=== PATIENT | male | born 1995 | race Caucasian/White ===

== ENCOUNTER 2017-02-17 22:33 | Emergency (ER) | payer OTHER ==
[~2017-02-17] VITALS: Wt 88.5 kg
[~2017-02-17 22:33] MED LIST: 'PARAFON FORTE500 M1 PO; ADDERALL10 MG PO; ADDERALL20 MG PO; ADDERALL30 MG PO; ALBUTEROL0.09 MG/A2 INH; ALLEGRA-D 12 HO1 TER PO; ANAPROX DS550 MG PO; BIAXIN500 MG PO; CLARITIN10 MG PO; CYCLOBENZAPRINE10 MG PO; FLONASE 0.05% 121 EA NAS; FLONASE ALLERG9.9 ML NAS; IBU800 MG PO; KEFLEX500 M1 PO; KEFLEX500 MG PO; KETOROLAC10 MG PO; LIDEX0.05% T; MEDROL DOSEPAK4 MG PO; MOTRIN100 MG/5 M PO; MOTRIN400 MG PO; MOTRIN600 MG PO; MOTRIN800 MG PO; Miralax Powder255 GM PO; NAPROSYN500 MG PO; OMNICEF300 MG PO; PEPCID20 MG PO; PHENERGAN25 M3 PO; PREDNICOT10 MG PO; PREDNICOT20 MG PO; PREDNISONE10 MG PO; PREDNISONE50 MG PO; PRILOSEC20 MG PO; RISPERDAL; RISPERDAL0.5 MG PO; RISPERDAL1 MG PO; ROBITUSSIN AC 110 ML PO; ROBITUSSIN DM 105 ML PO; TESSALON PERLE200 MG PO; TRAMADOL HCL50 MG PO; VYVANSE50 MG PO; ZITHROMAX Z PA250 MG PO; ZITHROMAX250 MG PO; ZOFRAN ODT4 MG SL; [UNRECOGNIZED DRUG - OTHER]
[2017-02-17] MEDS ORDERED: ANAPROX DS550 MG PO (23:45)
== END 2017-02-17 23:46 | disposition home or self-care (01) ==
LOC: ED 22:33
DX: M77.9 Enthesopathy, unspecified (principal); F91.9 Conduct disorder, unspecified; F17.200 Nicotine dependence, unspecified, uncomplicated; Z79.899 Other long term (current) drug therapy; Z91.038 Other insect allergy status

== ENCOUNTER 2017-03-02 18:14 | Emergency (ER) | payer OTHER ==
[~2017-03-02] VITALS: Ht 187.9 cm; Wt 98.4 kg
[2017-03-02 18:18] VITALS: BP 128/79
[2017-03-02] MEDS ORDERED: NAPROSYN500 MG PO (18:21)
== END 2017-03-02 19:11 | disposition home or self-care (01) ==
LOC: ED 18:14
DX: S63.501A Unspecified sprain of right wrist, initial encounter (principal); S60.221A Contusion of right hand, initial encounter; R03.0 Elevated blood-pressure reading, without diagnosis of hypertension; F17.200 Nicotine dependence, unspecified, uncomplicated; Z91.030 Bee allergy status; W50.0XXA Accidental hit or strike by another person, initial encounter; Y93.89 Activity, other specified; Y92.9 Unspecified place or not applicable; Y99.9 Unspecified external cause status

== ENCOUNTER 2017-04-04 18:08 | Emergency (ER) | payer OTHER ==
[~2017-04-04] VITALS: Ht 190.5 cm; Wt 98.4 kg
[2017-04-04 18:16] VITALS: BP 146/88
[2017-04-04 19:21] LABS: BASO % 0.6 % (0.0-1.0); EOS # 0.2 10*3/uL (0.0-0.4); EOS % 3.4 % (1.0-4.0); HEMATOCRIT 46.5 % (42.0-52.0); HEMOGLOBIN 15.8 g/dl (14.0-18.0); LYMPH # 1.8 10*3/uL (1.3-4.4); LYMPH % 26.1 % (27.0-41.0); MEAN CELL VOLUME 88.1 fl (80.0-94.0); MEAN CORPUSCULAR HGB 29.9 pg (27.0-31.0); MEAN PLATELET VOLUME 9.8 fl (9.6-12.3); MONO # 0.6 10*3/uL (0.1-1.0); NEUT # 4.2 10*3/uL (2.3-7.9); NEUT % 61.8 % (47.0-73.0); PLATELET COUNT AUTOMATED 250 10*3/uL (130-400); RED BLOOD COUNT 5.28 10*6/uL (4.50-5.90); RED CELL DISTRI WIDTH 12.7 % (0-14.5); WHITE BLOOD COUNT 6.9 10*3/uL (4.8-10.8)
[2017-04-04 19:33] LABS: BUN 9 mg/dl (7-24); CARBON DIOXIDE 25 mmol/L (21-32); CHLORIDE 107 mmol/L (98-107); EST GLOM FILT AFRICAN AMERICAN > 60 ml/min; GLUCOSE 109 mg/dL (65-99); POTASSIUM 3.3 mmol/L (3.5-5.1); SODIUM 141 mmol/L (136-145)
[2017-04-04 20:05] LABS: BILIRUBIN NEGATIVE (NEGATIVE); BLOOD NEGATIVE (NEGATIVE); CLARITY CLEAR (CLEAR); COLOR YELLOW (YELLOW); GLUCOSE NEGATIVE (NEGATIVE); KETONE NEGATIVE (NEGATIVE); LEUKO ESTERASE NEGATIVE (NEGATIVE); NITRITE NEGATIVE (NEGATIVE); PH 7.5 (5.0-9.0); PROTEIN NEGATIVE (NEGATIVE); UROBILINOGEN 0.2 E.U./dl (0.2-1.0)
[2017-04-04] MEDS ORDERED: Zofran4 MG PO (20:16)
[2017-04-04 20:26] LABS: BACTERIA TRACE; URINE REFLEX COMMENT NO (NO); WBC 0-2 wbc/hpf (0-5)
== END 2017-04-04 20:35 | disposition home or self-care (01) ==
LOC: ED 18:08
PROVIDERS: Emergency Medicine
DX: R11.2 Nausea with vomiting, unspecified (principal); R19.7 Diarrhea, unspecified; E87.6 Hypokalemia; F91.9 Conduct disorder, unspecified; F17.200 Nicotine dependence, unspecified, uncomplicated; Z91.030 Bee allergy status

== ENCOUNTER 2017-04-28 18:50 | Emergency (ER) | payer OTHER ==
[~2017-04-28] VITALS: Ht 187.9 cm; Wt 90.7 kg
[~2017-04-28 18:50] MED LIST changes: +Zofran4 MG PO
[2017-04-28 18:55] VITALS: BP 145/77
[2017-04-28] MEDS ORDERED: AMOXICILLIN500 M2 PO (19:15)
== END 2017-04-28 19:16 | disposition home or self-care (01) ==
LOC: ED 18:50
DX: J02.9 Acute pharyngitis, unspecified (principal); F17.200 Nicotine dependence, unspecified, uncomplicated; Z91.030 Bee allergy status

== ENCOUNTER 2017-04-30 15:59 | Emergency (ER) | payer OTHER ==
[~2017-04-30] VITALS: Ht 187.9 cm; Wt 90.7 kg
[~2017-04-30 15:59] MED LIST changes: +AMOXICILLIN500 M2 PO
[2017-04-30 16:20] VITALS: BP 143/85
[2017-04-30 17:10] LABS: HEMATOCRIT 44.5 % (42.0-52.0); HEMOGLOBIN 15.2 g/dl (14.0-18.0); MEAN CELL VOLUME 87.3 fl (80.0-94.0); MEAN CORPUSCULAR HGB 29.8 pg (27.0-31.0); MEAN CORPUSCULAR HGB CONC 34.2 g/dl (33.0-37.0); MEAN PLATELET VOLUME 9.4 fl (9.6-12.3); PLATELET COUNT AUTOMATED 217 10*3/uL (130-400); RED CELL DISTRI WIDTH 12.7 % (0-14.5)
[2017-04-30 17:25] LABS: ALBUMIN 4.1 gm/dl (3.1-4.5); ALKALINE PHOSPHATASE 98 U/L (45-117); BILIRUBIN, TOTAL 0.4 mg/dl (0.2-1.0); BUN 13 mg/dl (7-24); CARBON DIOXIDE 30 mmol/L (21-32); CHLORIDE 106 mmol/L (98-107); EST GLOM FILT AFRICAN AMERICAN > 60 ml/min; GLUCOSE 86 mg/dL (65-99); POTASSIUM 3.9 mmol/L (3.5-5.1); SGOT/AST 29 IU/L (3-35); SGPT/ALT 49 U/L (12-78); SODIUM 141 mmol/L (136-145); TOTAL PROTEIN 7.3 gm/dL (6.4-8.2)
[2017-04-30 17:30] LABS: ATYPICAL LYMPHS 2 % (0-0); BASOPHIL # 0.1 10*3/uL (0-0.1); BASOPHILS 2 % (0-1); EOSINOPHIL # 0.2 10*3/uL (0-0.4); EOSINOPHILS 3 % (1-4); LYMPHOCYTE # 2.2 10*3/uL (1.3-4.4); MONOCYTE # 0.8 10*3/uL (0.1-1.0); NEUTROPHIL # 3.6 10*3/uL (2.3-7.9); NEUTROPHILS 51 % (47-73); PLATELET SUFFICIENCY NORMAL (NORMAL); TOTAL CELLS COUNTED 100 #CELLS
[2017-04-30] MEDS ORDERED: PREDNISONE10 MG PO (18:02)
[2017-04-30] MEDS ORDERED: DOXYCYCLINE100 M3 PO (18:02)
== END 2017-04-30 18:14 | disposition home or self-care (01) ==
LOC: ED 15:59
PROVIDERS: Registered Nurse
DX: J03.90 Acute tonsillitis, unspecified (principal); F17.200 Nicotine dependence, unspecified, uncomplicated; Z91.030 Bee allergy status

== ENCOUNTER 2017-07-15 22:18 | Emergency (ER) | payer OTHER ==
[~2017-07-15] VITALS: Ht 175.2 cm; Wt 93.0 kg
[~2017-07-15 22:18] MED LIST changes: +DOXYCYCLINE100 M3 PO
[2017-07-15 22:43] VITALS: BP 131/70
[2017-07-15] MEDS ORDERED: AMOXICILLIN500 M2 PO (23:25)
== END 2017-07-16 00:47 | disposition home or self-care (01) ==
LOC: ED 22:18
DX: K08.89 Other specified disorders of teeth and supporting structures (principal); Z91.030 Bee allergy status; F17.200 Nicotine dependence, unspecified, uncomplicated

== ENCOUNTER 2017-08-27 03:50 | Emergency (ER) | payer SELFPAY ==
[~2017-08-27] VITALS: Ht 187.9 cm; Wt 102.1 kg
[2017-08-27 04:31] LABS: BASO % 0.4 % (0.0-1.0); EOS # 0.3 10*3/uL (0.0-0.4); EOS % 2.7 % (1.0-4.0); HEMATOCRIT 44.6 % (42.0-52.0); HEMOGLOBIN 15.6 g/dl (14.0-18.0); LYMPH # 2.5 10*3/uL (1.3-4.4); LYMPH % 27.9 % (27.0-41.0); MEAN CORPUSCULAR HGB 29.7 pg (27.0-31.0); MEAN PLATELET VOLUME 9.1 fl (9.6-12.3); MONO # 0.7 10*3/uL (0.1-1.0); MONO % 7.8 % (3.0-9.0); NEUT # 5.6 10*3/uL (2.3-7.9); PLATELET COUNT AUTOMATED 268 10*3/uL (130-400); RED BLOOD COUNT 5.25 10*6/uL (4.50-5.90); RED CELL DISTRI WIDTH 12.5 % (0-14.5); WHITE BLOOD COUNT 9.1 10*3/uL (4.8-10.8)
[2017-08-27 04:44] LABS: BUN 14 mg/dl (7-24); CHLORIDE 104 mmol/L (98-107); CREATININE 1.17 mg/dL (0.70-1.30); POTASSIUM 3.2 mmol/L (3.5-5.1); SODIUM 141 mmol/L (136-145)
[2017-08-27 04:51] VITALS: BP 118/68
[2017-08-27] MEDS ORDERED: PROAIR HFA8.5 GM INH (05:26)
[2017-08-27] MEDS ORDERED: AMOXICILLIN875 MG PO (05:26)
== END 2017-08-27 05:42 | disposition home or self-care (01) ==
LOC: ED 03:50
PROVIDERS: Emergency Medicine Emergency Medical Services
DX: J20.9 Acute bronchitis, unspecified (principal); J02.9 Acute pharyngitis, unspecified; J45.909 Unspecified asthma, uncomplicated; Z91.030 Bee allergy status

== ENCOUNTER 2017-10-01 22:45 | Emergency (ER) | payer OTHER ==
[~2017-10-01] VITALS: Wt 98.4 kg
[~2017-10-01 22:45] MED LIST changes: +AMOXICILLIN875 MG PO; +PROAIR HFA8.5 GM INH
[2017-10-01 22:51] VITALS: BP 121/75
[2017-10-01] MEDS ORDERED: ANAPROX DS550 MG PO (23:19)
== END 2017-10-01 23:55 | disposition home or self-care (01) ==
LOC: ED 22:45
DX: S39.011A Strain of muscle, fascia and tendon of abdomen, initial encounter (principal); F17.200 Nicotine dependence, unspecified, uncomplicated; Z91.030 Bee allergy status; X58.XXXA Exposure to other specified factors, initial encounter; Y93.89 Activity, other specified; Y92.89 Other specified places as the place of occurrence of the external cause; Y99.0 Civilian activity done for income or pay

== ENCOUNTER 2017-10-11 01:28 | Emergency (ER) | payer SELFPAY ==
[~2017-10-11] VITALS: Ht 187.9 cm; Wt 98.4 kg
[2017-10-11 01:31] VITALS: BP 136/89
[2017-10-11 02:25] LABS: BILIRUBIN NEGATIVE (NEGATIVE); BLOOD NEGATIVE (NEGATIVE); CLARITY CLEAR (CLEAR); COLOR YELLOW (YELLOW); GLUCOSE NEGATIVE (NEGATIVE); KETONE NEGATIVE (NEGATIVE); LEUKO ESTERASE TRACE (NEGATIVE); NITRITE NEGATIVE (NEGATIVE); SPECIFIC GRAVITY 1.015 (1.005-1.030); UROBILINOGEN 0.2 E.U./dl (0.2-1.0)
[2017-10-11 02:31] LABS: WBC 16-20 wbc/hpf (0-5)
== END 2017-10-11 02:50 | disposition home or self-care (01) ==
LOC: ED 01:28
PROVIDERS: Emergency Medicine
DX: R11.10 Vomiting, unspecified (principal); R19.7 Diarrhea, unspecified

== ENCOUNTER 2017-12-04 00:12 | Emergency (ER) | payer SELFPAY ==
[~2017-12-04] VITALS: Ht 187.9 cm; Wt 106.6 kg
[2017-12-04 00:22] VITALS: BP 140/81
[2017-12-04] MEDS ORDERED: Motrin,Rufen800 MG PO (00:30)
[2017-12-04] MEDS ORDERED: AMOXICILLIN500 M3 PO (00:30)
== END 2017-12-04 01:31 | disposition home or self-care (01) ==
LOC: ED 00:12
DX: K08.89 Other specified disorders of teeth and supporting structures (principal); F17.200 Nicotine dependence, unspecified, uncomplicated; Z91.030 Bee allergy status

== ENCOUNTER 2018-04-21 00:24 | Emergency (ER) | payer SELFPAY ==
[~2018-04-21] VITALS: Ht 187.9 cm; Wt 110.2 kg
[~2018-04-21 00:24] MED LIST changes: +AMOXICILLIN500 M3 PO; +Motrin,Rufen800 MG PO
[2018-04-21] MEDS ORDERED: AMOXICILLIN500 M2 PO (00:57)
[2018-04-21] MEDS ORDERED: Motrin,Rufen800 MG PO (00:57)
[2018-04-21 01:13] VITALS: BP 130/72
== END 2018-04-21 01:12 | disposition home or self-care (01) ==
LOC: ED 00:24
DX: S93.491A Sprain of other ligament of right ankle, initial encounter (principal); K04.01 Reversible pulpitis; Z91.030 Bee allergy status; W17.89XA Other fall from one level to another, initial encounter; Y93.39 Activity, other involving climbing, rappelling and jumping off; Y92.89 Other specified places as the place of occurrence of the external cause; Y99.9 Unspecified external cause status

== ENCOUNTER 2018-05-13 15:09 | Emergency (ER) | payer SELFPAY ==
[~2018-05-13] VITALS: Ht 187.9 cm; Wt 99.8 kg
[2018-05-13 15:10] VITALS: BP 129/92
== END 2018-05-13 15:47 | disposition home or self-care (01) ==
LOC: ED 15:09
DX: S93.491D Sprain of other ligament of right ankle, subsequent encounter (principal); Z91.030 Bee allergy status; X58.XXXD Exposure to other specified factors, subsequent encounter

== ENCOUNTER 2018-08-14 01:36 | Emergency (ER) | payer OTHER ==
[~2018-08-14] VITALS: Ht 187.9 cm; Wt 106.6 kg
[2018-08-14 01:38] VITALS: BP 137/93
== END 2018-08-14 04:07 | disposition home or self-care (01) ==
LOC: ED 01:36
DX: S05.01XA Injury of conjunctiva and corneal abrasion without foreign body, right eye, initial encounter (principal); Z91.030 Bee allergy status; X58.XXXA Exposure to other specified factors, initial encounter; Y93.89 Activity, other specified; Y92.89 Other specified places as the place of occurrence of the external cause; Y99.8 Other external cause status

== ENCOUNTER 2018-10-12 01:17 | Emergency (ER) | payer SELFPAY ==
[~2018-10-12] VITALS: Ht 187.9 cm; Wt 106.6 kg
[2018-10-12 03:12] VITALS: BP 146/62
== END 2018-10-12 03:28 | disposition home or self-care (01) ==
LOC: ED 01:17
DX: S00.93XA Contusion of unspecified part of head, initial encounter (principal); M54.9 Dorsalgia, unspecified; R68.84 Jaw pain; R07.81 Pleurodynia; J45.909 Unspecified asthma, uncomplicated; Z91.030 Bee allergy status; Z79.2 Long term (current) use of antibiotics; Z79.1 Long term (current) use of non-steroidal anti-inflammatories (NSAID); Z79.899 Other long term (current) drug therapy; Y04.8XXA Assault by other bodily force, initial encounter; Y93.89 Activity, other specified; Y92.89 Other specified places as the place of occurrence of the external cause; Y99.8 Other external cause status

== ENCOUNTER 2018-12-05 12:44 | Emergency (ER) | payer SELFPAY ==
[~2018-12-05] VITALS: Ht 185.4 cm; Wt 102.1 kg
[2018-12-05 12:45] VITALS: BP 132/78
[2018-12-05 13:09] LABS: BASO % 0.5 % (0.0-1.0); EOS # 0.2 10*3/uL (0.0-0.4); EOS % 2.7 % (1.0-4.0); HEMATOCRIT 49.4 % (42.0-52.0); HEMOGLOBIN 16.9 g/dl (14.0-18.0); LYMPH # 1.9 10*3/uL (1.3-4.4); LYMPH % 29.3 % (27.0-41.0); MEAN CELL VOLUME 87.9 fl (80.0-94.0); MEAN CORPUSCULAR HGB 30.1 pg (27.0-31.0); MEAN CORPUSCULAR HGB CONC 34.2 g/dl (33.0-37.0); MEAN PLATELET VOLUME 9.3 fl (9.6-12.3); MONO # 0.5 10*3/uL (0.1-1.0); MONO % 8.1 % (3.0-9.0); NEUT # 3.9 10*3/uL (2.3-7.9); NEUT % 59.1 % (47.0-73.0); PLATELET COUNT AUTOMATED 284 10*3/uL (130-400); RED BLOOD COUNT 5.62 10*6/uL (4.50-5.90); RED CELL DISTRI WIDTH 12.6 % (0-14.5); WHITE BLOOD COUNT 6.6 10*3/uL (4.8-10.8)
[2018-12-05 13:24] LABS: ALBUMIN 4.1 gm/dl (3.1-4.5); ALKALINE PHOSPHATASE 108 U/L (45-117); BUN 9 mg/dl (7-24); CHLORIDE 108 mmol/L (98-107); CREATININE 0.95 mg/dL (0.70-1.30); POTASSIUM 3.9 mmol/L (3.5-5.1); SGOT/AST 35 IU/L (3-35); SGPT/ALT 64 U/L (12-78); SODIUM 142 mmol/L (136-145); TOTAL PROTEIN 7.5 gm/dL (6.4-8.2)
[2018-12-05] MEDS ORDERED: FLONASE ALLERG9.9 ML NAS (13:30)
[2018-12-05] MEDS ORDERED: CLARITIN10 MG PO (13:30)
[2018-12-05] MEDS ORDERED: PREDNISONE10 MG PO (13:30)
== END 2018-12-05 14:22 | disposition home or self-care (01) ==
LOC: ED 12:44
PROVIDERS: Nurse Practitioner Family
DX: B34.9 Viral infection, unspecified (principal); R03.0 Elevated blood-pressure reading, without diagnosis of hypertension; J45.909 Unspecified asthma, uncomplicated; Z91.030 Bee allergy status

== ENCOUNTER 2019-01-03 21:26 | Emergency (ER) | payer OTHER ==
[2019-01-03 21:27] VITALS: BP 131/71
[2019-01-03] MEDS ORDERED: AMOXICILLIN500 M2 PO (22:11)
[2019-01-03] MEDS ORDERED: FLONASE ALLERG9.9 ML NAS (22:11)
[2019-01-03] MEDS ORDERED: ZYRTEC10 MG PO (22:11)
== END 2019-01-03 22:23 | disposition home or self-care (01) ==
LOC: ED 21:26
DX: J32.9 Chronic sinusitis, unspecified (principal); J45.909 Unspecified asthma, uncomplicated; Z91.013 Allergy to seafood

== ENCOUNTER 2019-05-02 23:46 | Emergency (ER) | payer SELFPAY ==
[~2019-05-02] VITALS: Ht 185.4 cm; Wt 108.9 kg
--- NOTE | ~2019-05-02 | EKG ---
[place], [place] ELECTROCARDIOGRAM REPORT NAME: KEREN KAHN UNIT #: [id number] ROOM: DOCTOR: EPIPHANY DRAFT REPORT BIRTHDATE: [birth year] [facility] Test Date: 2019-05-03 Test Time: 01:02:24 Pat Name: KEREN KAHN Department: Room: Gender: Cashier Wrapper: : 1995 Requested By: ERICK LOVE Order Number: [id number] Reading MD: Rahat Perez MD Measurements Intervals [place] Rate: 62 P: 36 VA: 148 QRS: 0 QRSD: 106 T: -8 QT: 415 QTc: 422 Interpretive Statements Sinus rhythm Borderline T abnormalities, inferior leads Electronically Signed On 05-03-2019 9:37:43 PDT by Rahat Perez MD CM:EKGRPT:ELECTROCARDIOGRAM REPORT [id number] ERICK JANE DRAFT REPORT ERICK LOVE DO
[~2019-05-02 23:46] MED LIST changes: +ZYRTEC10 MG PO
[2019-05-03 00:44] LABS: BASO # 0.1 10*3/uL (0.0-0.1); BASO % 0.5 % (0.0-1.0); EOS # 0.1 10*3/uL (0.0-0.4); HEMATOCRIT 48.3 % (42.0-52.0); HEMOGLOBIN 16.6 g/dl (14.0-18.0); LYMPH # 2.3 10*3/uL (1.3-4.4); LYMPH % 21.2 % (27.0-41.0); MEAN CELL VOLUME 89.9 fl (80.0-94.0); MEAN CORPUSCULAR HGB 30.9 pg (27.0-31.0); MEAN CORPUSCULAR HGB CONC 34.4 g/dl (33.0-37.0); MEAN PLATELET VOLUME 9.9 fl (9.6-12.3); MONO # 1.2 10*3/uL (0.1-1.0); MONO % 10.9 % (3.0-9.0); NEUT # 7.1 10*3/uL (2.3-7.9); NEUT % 66.1 % (47.0-73.0); PLATELET COUNT AUTOMATED 296 10*3/uL (130-400); RED BLOOD COUNT 5.37 10*6/uL (4.50-5.90); RED CELL DISTRI WIDTH 12.3 % (0-14.5); WHITE BLOOD COUNT 10.8 10*3/uL (4.8-10.8)
[2019-05-03 00:45] LABS: BILIRUBIN NEGATIVE (NEGATIVE); BLOOD NEGATIVE (NEGATIVE); CLARITY CLEAR (CLEAR); COLOR YELLOW (YELLOW); GLUCOSE NEGATIVE (NEGATIVE); KETONE NEGATIVE (NEGATIVE); LEUKO ESTERASE 1+ (NEGATIVE); NITRITE NEGATIVE (NEGATIVE); SPECIFIC GRAVITY 1.025 (1.005-1.030); UROBILINOGEN 0.2 E.U./dl (0.2-1.0)
[2019-05-03 00:53] LABS: URINE AMPHETAMINES < 1000 (1000ng/ml); URINE BARBITURATES < 200 (200ng/ml); URINE BENZODIAZEPINES < 200 (200ng/ml); URINE CANNABINOIDS (THC) < 50 (50ng/ml); URINE COCAINE < 300 (300ng/ml); URINE METHADONE < 300 (300ng/ml); URINE OPIATES < 300 (300ng/ml)
[2019-05-03 00:56] LABS: BACTERIA TRACE; MUCOUS 1+; WBC 21-30 wbc/hpf (0-5)
[2019-05-03 01:00] LABS: ACETAMINOPHEN (TYLENOL) < 2.0 ug/ml (10-30); ALBUMIN 4.7 gm/dl (3.1-4.5); ALKALINE PHOSPHATASE 121 U/L (45-117); BUN 12 mg/dl (7-24); CHLORIDE 105 mmol/L (98-107); CREATININE 1.01 mg/dL (0.70-1.30); ETHYL ALCOHOL < 3.0 mg/dl (<3); POTASSIUM 3.5 mmol/L (3.5-5.1); SGOT/AST 33 IU/L (3-35); SGPT/ALT 67 U/L (12-78); SODIUM 141 mmol/L (136-145); TOTAL PROTEIN 7.9 gm/dL (6.4-8.2)
[2019-05-03 01:00] LABS: URINE PHENCYCLIDINE < 25 (25ng/ml)
[2019-05-03 07:36] VITALS: BP 113/66
== END 2019-05-03 10:25 | disposition home or self-care (01) ==
LOC: ED 23:46
PROVIDERS: Emergency Medicine
DX: F43.21 Adjustment disorder with depressed mood (principal); J45.909 Unspecified asthma, uncomplicated; Z91.030 Bee allergy status

== ENCOUNTER 2019-08-23 00:01 | Emergency (ER) | payer SELFPAY ==
[~2019-08-23] VITALS: Ht 182.8 cm; Wt 106.6 kg
[2019-08-23 00:02] VITALS: BP 133/94
[2019-08-23] MEDS ORDERED: AMOXICILLIN500 M2 PO (01:49)
== END 2019-08-23 02:29 | disposition home or self-care (01) ==
LOC: ED 00:01
DX: J03.90 Acute tonsillitis, unspecified (principal); Z79.899 Other long term (current) drug therapy; Z91.030 Bee allergy status

== ENCOUNTER 2020-01-11 15:41 | Emergency (ER) | payer OTHER ==
[~2020-01-11] VITALS: Ht 182.8 cm; Wt 108.0 kg
[2020-01-11 16:00] VITALS: BP 133/63
== END 2020-01-11 19:20 | disposition home or self-care (01) ==
LOC: ED 15:41
DX: S89.92XA Unspecified injury of left lower leg, initial encounter (principal); J45.909 Unspecified asthma, uncomplicated; F17.200 Nicotine dependence, unspecified, uncomplicated; Z91.030 Bee allergy status; Z79.2 Long term (current) use of antibiotics; Z79.899 Other long term (current) drug therapy; X50.1XXA Overexertion from prolonged static or awkward postures, initial encounter; Y93.89 Activity, other specified; Y92.89 Other specified places as the place of occurrence of the external cause; Y99.0 Civilian activity done for income or pay

== ENCOUNTER 2020-01-29 14:42 | Emergency (ER) | payer OTHER ==
[~2020-01-29] VITALS: Ht 182.8 cm; Wt 108.9 kg
[2020-01-29 14:47] VITALS: BP 124/80
[2020-01-29 15:11] LABS: BASO % 0.3 % (0.0-1.0); EOS # 0.1 10*3/uL (0.0-0.4); EOS % 0.6 % (1.0-4.0); HEMATOCRIT 47.9 % (42.0-52.0); HEMOGLOBIN 16.3 g/dl (14.0-18.0); LYMPH # 1.3 10*3/uL (1.3-4.4); LYMPH % 13.6 % (27.0-41.0); MEAN CORPUSCULAR HGB 30.3 pg (27.0-31.0); MEAN PLATELET VOLUME 9.7 fl (9.6-12.3); MONO # 0.7 10*3/uL (0.1-1.0); MONO % 6.9 % (3.0-9.0); NEUT # 7.4 10*3/uL (2.3-7.9); NEUT % 78.4 % (47.0-73.0); PLATELET COUNT AUTOMATED 299 10*3/uL (130-400); RED BLOOD COUNT 5.38 10*6/uL (4.50-5.90); RED CELL DISTRI WIDTH 12.8 % (0-14.5); WHITE BLOOD COUNT 9.5 10*3/uL (4.8-10.8)
[2020-01-29 15:26] LABS: ALBUMIN 4.3 gm/dl (3.1-4.5); ALKALINE PHOSPHATASE 105 U/L (45-117); BUN 10 mg/dl (7-24); CHLORIDE 108 mmol/L (98-107); CREATININE 0.85 mg/dL (0.70-1.30); LIPASE 44 U/L (73-393); POTASSIUM 3.7 mmol/L (3.5-5.1); SGOT/AST 21 IU/L (3-35); SGPT/ALT 43 U/L (12-78); SODIUM 141 mmol/L (136-145); TOTAL PROTEIN 7.5 gm/dL (6.4-8.2)
[2020-01-29] MEDS ORDERED: ZOFRAN4 MG PO (15:56)
== END 2020-01-29 16:36 | disposition home or self-care (01) ==
LOC: ED 14:42
PROVIDERS: Nurse Practitioner Family
DX: K52.9 Noninfective gastroenteritis and colitis, unspecified (principal); F31.9 Bipolar disorder, unspecified; J45.909 Unspecified asthma, uncomplicated; Z79.2 Long term (current) use of antibiotics; Z79.899 Other long term (current) drug therapy

== ENCOUNTER 2020-04-13 19:22 | Emergency (ER) | payer OTHER ==
[~2020-04-13] VITALS: Ht 182.8 cm; Wt 107.0 kg
[~2020-04-13 19:22] MED LIST changes: +ZOFRAN4 MG PO
[2020-04-13 19:31] VITALS: BP 124/77
== END 2020-04-13 22:21 | disposition home or self-care (01) ==
LOC: ED 19:22
DX: Z77.098 Contact with and (suspected) exposure to other hazardous, chiefly nonmedicinal, chemicals (principal); J45.909 Unspecified asthma, uncomplicated; F31.9 Bipolar disorder, unspecified; Z91.030 Bee allergy status; Z79.899 Other long term (current) drug therapy

== ENCOUNTER 2020-06-05 09:25 | Emergency (ER) | payer OTHER ==
[2020-06-05 09:33] VITALS: BP 135/94
[2020-06-05] MEDS ORDERED: CLINDAMYCIN HC300 MG PO (10:28)
[2020-06-05] MEDS ORDERED: ZOFRAN4 MG PO (10:28)
== END 2020-06-05 10:35 | disposition home or self-care (01) ==
LOC: ED 09:25
DX: K08.89 Other specified disorders of teeth and supporting structures (principal); Z79.899 Other long term (current) drug therapy; Z91.030 Bee allergy status

== ENCOUNTER 2020-06-28 16:14 | Emergency (ER) | payer SELFPAY ==
[~2020-06-28] VITALS: Ht 185.4 cm; Wt 106.6 kg
[~2020-06-28 16:14] MED LIST changes: +CLINDAMYCIN HC300 MG PO
[2020-06-28 16:20] VITALS: BP 135/76
== END 2020-06-28 18:32 | disposition home or self-care (01) ==
LOC: ED 16:14
DX: T14.8XXA Other injury of unspecified body region, initial encounter (principal); J45.909 Unspecified asthma, uncomplicated; F31.9 Bipolar disorder, unspecified; Z91.030 Bee allergy status; Z79.899 Other long term (current) drug therapy; Y08.89XA Assault by other specified means, initial encounter; Y93.89 Activity, other specified; Y92.89 Other specified places as the place of occurrence of the external cause; Y99.8 Other external cause status

== ENCOUNTER 2021-07-27 00:01 | Emergency (ER) | payer SELFPAY ==
[~2021-07-27] VITALS: Ht 185.4 cm; Wt 113.4 kg
[2021-07-27 00:08] VITALS: BP 123/80
[2021-07-27] MEDS ORDERED: DIPHENHYDRAMINE50 M1 PO (01:13)
[2021-07-27] MEDS ORDERED: MEDROL DOSEPAK4 MG PO ×2 (01:13)
== END 2021-07-27 01:15 | disposition home or self-care (01) ==
LOC: ED 00:01
DX: L23.7 Allergic contact dermatitis due to plants, except food (principal); F17.200 Nicotine dependence, unspecified, uncomplicated; Z91.030 Bee allergy status

== ENCOUNTER 2021-08-08 20:06 | Emergency (ER) | payer SELFPAY ==
[~2021-08-08] VITALS: Ht 185.4 cm; Wt 113.4 kg
[~2021-08-08 20:06] MED LIST changes: +DIPHENHYDRAMINE50 M1 PO
[2021-08-08 20:40] VITALS: BP 141/89
[2021-08-08] MEDS ORDERED: PREDNISONE20 M1 PO (23:47)
[2021-08-08] MEDS ORDERED: PROVENTIL HFA6.7 GM INH (23:47)
== END 2021-08-09 01:02 | disposition home or self-care (01) ==
LOC: ED 20:06
DX: U07.1 COVID-19 (principal); Z79.899 Other long term (current) drug therapy; Z91.030 Bee allergy status

== ENCOUNTER → 2021-12-06 | Outpatient (CLI) | payer OTHER ==
[~2021-12-06] MED LIST changes: +PREDNISONE20 M1 PO; +PROVENTIL HFA6.7 GM INH
== END | disposition home or self-care (01) ==
LOC: COVID19 15:35
PROVIDERS: ATTEND Podiatrist Foot & Ankle Surgery
DX: U07.1 COVID-19 (principal)

== ENCOUNTER 2022-02-03 20:14 | Emergency (ER) | payer SELFPAY ==
[~2022-02-03] VITALS: Wt 114.3 kg
[2022-02-03 20:31] VITALS: BP 118/73
[2022-02-03] MEDS ORDERED: AMOXICILLIN500 M2 PO (21:00)
[2022-02-03] MEDS ORDERED: ULTRAM50 MG PO (21:01)
== END 2022-02-03 21:10 | disposition home or self-care (01) ==
LOC: ED 20:14
DX: K04.7 Periapical abscess without sinus (principal); K02.9 Dental caries, unspecified; F17.200 Nicotine dependence, unspecified, uncomplicated; Z79.899 Other long term (current) drug therapy; Z91.030 Bee allergy status

== ENCOUNTER 2022-11-21 05:08 | Emergency (ER) | payer BC, MEDICAID ==
[~2022-11-21] VITALS: Ht 185.4 cm; Wt 104.3 kg
[2022-11-21 05:08] VITALS: BP 134/7
[~2022-11-21 05:08] MED LIST changes: +ULTRAM50 MG PO
[2022-11-21] MEDS ORDERED: ONDANSETRON4 MG SL (08:27)
== END 2022-11-21 08:44 | disposition home or self-care (01) ==
LOC: ED 05:08
DX: B34.9 Viral infection, unspecified (principal); Z20.822 Contact with and (suspected) exposure to COVID-19; Z91.030 Bee allergy status

== ENCOUNTER 2023-01-22 10:26 | Emergency (ER) | payer BC, MEDICAID ==
[~2023-01-22] VITALS: Ht 185.4 cm; Wt 106.6 kg
[~2023-01-22 10:26] MED LIST changes: +ONDANSETRON4 MG SL
[2023-01-22 10:29] VITALS: BP 134/88
[2023-01-22 11:19] LABS: BASO % 0.5 % (0.0-1.0); EOS # 0.3 10*3/uL (0.0-0.4); EOS % 3.2 % (1.0-4.0); HEMATOCRIT 46.3 % (42.0-52.0); LYMPH # 2.2 10*3/uL (1.3-4.4); LYMPH % 27.4 % (27.0-41.0); MEAN CELL VOLUME 86.9 fl (80.0-94.0); MEAN CORPUSCULAR HGB 30.2 pg (27.0-31.0); MEAN CORPUSCULAR HGB CONC 34.8 g/dl (33.0-37.0); MEAN PLATELET VOLUME 8.9 fl (9.6-12.3); MONO # 0.6 10*3/uL (0.1-1.0); MONO % 7.2 % (3.0-9.0); NEUT # 4.9 10*3/uL (2.3-7.9); NEUT % 61.6 % (47.0-73.0); PLATELET COUNT AUTOMATED 299 10*3/uL (130-400); RED BLOOD COUNT 5.33 10*6/uL (4.50-5.90); RED CELL DISTRI WIDTH 12.6 % (0-14.5); WHITE BLOOD COUNT 7.9 10*3/uL (4.8-10.8)
[2023-01-22 11:30] LABS: ACT PARTIAL THROMBO TIME 33.6 SECONDS (20.0-32.1)
[2023-01-22 11:33] LABS: ALKALINE PHOSPHATASE 102 U/L (46-116); BUN 10 mg/dl (9-23); CHLORIDE 105 mmol/L (98-107); LIPASE 28 U/L (12-53); POTASSIUM 3.8 mmol/L (3.4-5.1); SGPT/ALT 38 U/L (10-49); TOTAL PROTEIN 6.9 gm/dL (6.0-8.0)
== END 2023-01-22 13:46 | disposition home or self-care (01) ==
LOC: ED 10:26
PROVIDERS: Internal Medicine
DX: S00.93XA Contusion of unspecified part of head, initial encounter (principal); R07.81 Pleurodynia; Z98.890 Other specified postprocedural states; J45.909 Unspecified asthma, uncomplicated; Z91.030 Bee allergy status; F31.9 Bipolar disorder, unspecified; W50.0XXA Accidental hit or strike by another person, initial encounter; Y93.71 Activity, boxing; Y92.39 Other specified sports and athletic area as the place of occurrence of the external cause; Y99.8 Other external cause status

== ENCOUNTER 2024-03-02 18:26 | Emergency (ER) | payer SELFPAY ==
[~2024-03-02] VITALS: Ht 185.4 cm; Wt 111.1 kg
[2024-03-02 19:02] LABS: BASO # 0.1 10*3/uL (0.0-0.1); BASO % 0.5 % (0.0-1.0); EOS # 0.2 10*3/uL (0.0-0.4); EOS % 1.9 % (1.0-4.0); HEMATOCRIT 49.8 % (42.0-52.0); LYMPH # 2.6 10*3/uL (1.3-4.4); LYMPH % 23.7 % (27.0-41.0); MEAN CELL VOLUME 88.3 fl (80.0-94.0); MEAN CORPUSCULAR HGB 29.8 pg (27.0-31.0); MEAN CORPUSCULAR HGB CONC 33.7 g/dl (33.0-37.0); MONO # 0.8 10*3/uL (0.1-1.0); MONO % 7.1 % (3.0-9.0); NEUT # 7.2 10*3/uL (2.3-7.9); NEUT % 66.5 % (47.0-73.0); PLATELET COUNT AUTOMATED 343 10*3/uL (130-400); RED BLOOD COUNT 5.64 10*6/uL (4.50-5.90); RED CELL DISTRI WIDTH 12.6 % (0-14.5); WHITE BLOOD COUNT 10.8 10*3/uL (4.8-10.8)
[2024-03-02 19:03] LABS: BILIRUBIN Negative (Negative); BLOOD Negative (Negative); CLARITY Clear (Clear); COLOR Yellow (Yellow); GLUCOSE Negative (Negative); KETONE Negative (Negative); LEUKO ESTERASE Negative (Negative); NITRITE Negative (Negative)
[2024-03-02 19:06] VITALS: BP 138/86
[2024-03-02 19:08] LABS: BACTERIA TRACE; EPITHELIAL CELLS 0-2; MUCOUS 1+
[2024-03-02 19:10] LABS: URINE AMPHETAMINES Negative (1000ng/ml); URINE BARBITURATES Negative (200ng/ml); URINE BENZODIAZEPINES Negative (200ng/ml); URINE CANNABINOIDS (THC) Negative (50ng/ml); URINE COCAINE Negative (300ng/ml); URINE METHADONE Negative (300ng/ml); URINE OPIATES Negative (300ng/ml); URINE PHENCYCLIDINE Negative (25ng/ml)
[2024-03-02 19:23] LABS: ALKALINE PHOSPHATASE 101 U/L (46-116); BUN 8 mg/dl (9-23); CHLORIDE 106 mmol/L (98-107); CPK 68 U/L (34-171); LIPASE 41 U/L (12-53); POTASSIUM 3.7 mmol/L (3.4-5.1); SGPT/ALT 65 U/L (5-49); TOTAL PROTEIN 7.9 gm/dL (6.0-8.0)
[2024-03-02 19:35] LABS: ETHYL ALCOHOL < 3.0 mg/dl (<3)
== END 2024-03-02 23:26 ==
LOC: ED 18:26
PROVIDERS: Internal Medicine
DX: F43.20 Adjustment disorder, unspecified (principal); F31.9 Bipolar disorder, unspecified; J45.909 Unspecified asthma, uncomplicated; Z91.030 Bee allergy status

== ENCOUNTER 2024-04-27 15:22 | Emergency (ER) | payer SELFPAY ==
[~2024-04-27] VITALS: Ht 185.4 cm; Wt 113.4 kg
[2024-04-27 15:37] VITALS: BP 143/91
== END 2024-04-27 17:55 | disposition left against medical advice (07) ==
LOC: ED 15:22
DX: R05.9 Cough, unspecified (principal); R50.9 Fever, unspecified; R09.89 Other specified symptoms and signs involving the circulatory and respiratory systems; Z53.21 Procedure and treatment not carried out due to patient leaving prior to being seen by health care provider

== ENCOUNTER 2024-08-25 15:31 | Emergency (ER) | payer SELFPAY ==
[~2024-08-25] VITALS: Ht 185.4 cm; Wt 113.4 kg
[2024-08-25 16:00] VITALS: BP 118/74
[2024-08-25] MEDS ORDERED: Amoxicillin/Clavulanate Pota 875 MG TAB PO ONE (16:25)
[2024-08-25] MEDS ORDERED: Dexamethasone Sodium Phospha 20 MG/5 ML VIAL IM ONE (16:25)
[2024-08-25] MEDS ORDERED: Ketorolac Tromethamine 30 MG/ML VIAL IM ONE (16:25)
[2024-08-25] MEDS ORDERED: CYCLOBENZAPRINE5 M3 PO (17:22)
[2024-08-25] MEDS ORDERED: LIDOCAINE PAIN1 EACH T (17:22)
[2024-08-25] MEDS ORDERED: AMOX-CLAV 875-1 EACH PO (17:22)
[2024-08-25] MEDS ORDERED: MEDROL DOSEPAK4 MG PO (17:22)
[2024-08-25] MEDS ORDERED: MELOXICAM15 MG PO (17:22)
== END 2024-08-25 17:33 | disposition home or self-care (01) ==
LOC: ED 15:31
DX: M62.830 Muscle spasm of back (principal); K04.7 Periapical abscess without sinus; K02.9 Dental caries, unspecified; F31.9 Bipolar disorder, unspecified; J45.909 Unspecified asthma, uncomplicated; Z91.030 Bee allergy status

== ENCOUNTER 2024-12-11 16:23 | Emergency (ER) | payer SELFPAY ==
[~2024-12-11] VITALS: Ht 185.4 cm; Wt 113.4 kg
[~2024-12-11 16:23] MED LIST changes: +AMOX-CLAV 875-1 EACH PO; +CYCLOBENZAPRINE5 M3 PO; +LIDOCAINE PAIN1 EACH T; +MELOXICAM15 MG PO
[2024-12-11 16:38] VITALS: BP 133/87
[2024-12-11] MEDS ORDERED: AMOX-CLAV 875-1 EACH PO (16:54)
== END 2024-12-11 17:15 | disposition home or self-care (01) ==
LOC: ED 16:23
DX: K02.9 Dental caries, unspecified (principal); F31.9 Bipolar disorder, unspecified; J45.909 Unspecified asthma, uncomplicated; Z91.030 Bee allergy status

== ENCOUNTER 2025-06-04 02:33 | Emergency (ER) | payer OTHER ==
[~2025-06-04] VITALS: Ht 185.4 cm; Wt 122.5 kg
[2025-06-04 02:59] VITALS: BP 137/87
[2025-06-04] MEDS ORDERED: CLINDAMYCIN HC300 MG PO (03:09)
[2025-06-04] MEDS ORDERED: TRAMADOL HCL50 MG PO (03:09)
[2025-06-04] MEDS ORDERED: CLINDAMYCIN HCL 300 MG CAPSULE PO ONE (03:10)
== END 2025-06-04 03:26 | disposition home or self-care (01) ==
LOC: ED 02:33
DX: K02.9 Dental caries, unspecified (principal); K04.7 Periapical abscess without sinus; J45.909 Unspecified asthma, uncomplicated; Z91.030 Bee allergy status

== ENCOUNTER 2025-06-28 02:01 | Emergency (ER) | payer OTHER ==
[~2025-06-28] VITALS: Ht 185.4 cm; Wt 124.7 kg
[2025-06-28] MEDS ORDERED: PENICILLIN V POTASSIUM 500 MG TAB PO ONE (02:10)
[2025-06-28] MEDS ORDERED: Ondansetron Hydrochloride 4 MG TAB SL ONE (02:10)
[2025-06-28] MEDS ORDERED: Acetaminophen/Hydrocodone 5 MG/325 MG TABLET PO ONE (02:10)
[2025-06-28 02:12] VITALS: BP 150/95
[2025-06-28] MEDS ORDERED: PENICILLIN VK500 MG PO (02:15)
== END 2025-06-28 02:15 | disposition home or self-care (01) ==
LOC: ED 02:01
DX: K02.9 Dental caries, unspecified (principal); K08.89 Other specified disorders of teeth and supporting structures

== ENCOUNTER 2025-07-18 22:54 | Emergency (ER) | payer OTHER ==
[~2025-07-18 22:54] MED LIST changes: +PENICILLIN VK500 MG PO
[2025-07-18 23:05] VITALS: BP 138/76
[2025-07-18] MEDS ORDERED: Ondansetron Hydrochloride 4 MG TAB SL ONE (23:05)
[2025-07-18] MEDS ORDERED: CLINDAMYCIN HC300 MG PO (23:10)
[2025-07-18] MEDS ORDERED: Acetaminophen/Hydrocodone 5 MG/325 MG TABLET PO ONE (23:10)
[2025-07-18] MEDS ORDERED: CLINDAMYCIN HCL 300 MG CAPSULE PO ONE (23:10)
== END 2025-07-18 23:14 | disposition home or self-care (01) ==
LOC: ED 22:54
DX: K02.9 Dental caries, unspecified (principal); F31.9 Bipolar disorder, unspecified; F98.8 Other specified behavioral and emotional disorders with onset usually occurring in childhood and adolescence; J45.909 Unspecified asthma, uncomplicated; Z91.030 Bee allergy status